=== PATIENT | female | born 1980 | race Caucasian/White ===

== ENCOUNTER → 2016-06-04 | Outpatient (CLI) | payer BC, OTHER ==
[~2016-06-04] MED LIST: CITA40TA12 PO; ESCI1TAB18 PO; VEDO1INJ
[2016-06-04 13:37] LABS: ALT/SGPT 35 U/L (12-78); BLOOD UREA NITROGEN 13 mg/dl (7-18); BUN/CREATININE RATIO 13.7 (10-20); CALCIUM 8.9 mg/dl (8.5-10.1); CARBON DIOXIDE 22 mmol/L (21-32); CHLORIDE 108 mmol/L (98-107); CHOLESTEROL 232 mg/dl (0-200); CREATININE 0.97 mg/dl (0.60-1.20); GLUCOSE 90 mg/dl (70-99); POTASSIUM 3.8 mmol/L (3.5-5.1); SODIUM 141 mmol/L (136-145); TRIGLYCERIDES 152 mg/dl (0-150); VERY LOW DENSITY LIPOPROT CALC 30 mg/dl
[2016-06-04 13:40] LABS: ALB/GLOB RATIO 0.9 (0.9-2); ALKALINE PHOSPHATASE 64 U/L (45-117); AST/SGOT 19 U/L (15-37); CHOLESTEROL/HDL RATIO 5.5; HDL CHOLESTEROL 42 mg/dl; LDL CHOLESTEROL CALCULATED 160 mg/dl
== END | disposition home or self-care (01) ==
LOC: C.LABMFLN 06-04 07:43
PROVIDERS: ATTEND Family Medicine
DX: Z00.00 Encounter for general adult medical examination without abnormal findings (principal); K50.00 Crohn's disease of small intestine without complications; Z13.220 Encounter for screening for lipoid disorders; Z13.1 Encounter for screening for diabetes mellitus; T45.1X5A Adverse effect of antineoplastic and immunosuppressive drugs, initial encounter

== ENCOUNTER → 2016-12-20 | Outpatient (CLI) | payer BC ==
[2016-12-20 18:06] LABS: BASO % 0.5 %; BASO ABS # 0.04 K/uL (0-0.2); COMPLETE YES; EOS % 1.8 %; HEMATOCRIT 40.5 % (37-47); IG% 0.5 %; LYMPH % 39.4 %; LYMPH ABS # 3.03 K/uL (1.2-3.4); MEAN CELL VOLUME 83.3 fL (80-100); MEAN CORPUSCULAR HEMOGLOBIN 28.8 pg (25-34); MEAN CORPUSCULAR HGB CONC 34.6 g/dl (32-36); MEAN PLATELET VOLUME 9.9 fL (7.4-10.4); MONO % 6.8 %; PLATELET COUNT 236 K/uL (130-400); RED BLOOD COUNT 4.86 M/uL (4.2-5.4)
[2016-12-20 18:07] LABS: ALT/SGPT 34 U/L (12-78); BLOOD UREA NITROGEN 7 mg/dl (7-18); C-REACTIVE PROTEIN 0.72 mg/dl (0-0.29); CARBON DIOXIDE 31 mmol/L (21-32); CHLORIDE 103 mmol/L (98-107); CREATININE 0.88 mg/dl (0.60-1.20); GLUCOSE 106 mg/dl (70-99); POTASSIUM 3.8 mmol/L (3.5-5.1); SODIUM 138 mmol/L (136-145)
[2016-12-20 18:09] LABS: ALB/GLOB RATIO 0.9 (0.9-2); ALKALINE PHOSPHATASE 86 U/L (45-117); AST/SGOT 20 U/L (15-37)
== END | disposition home or self-care (01) ==
LOC: C.LABMFLN 15:05
PROVIDERS: ATTEND Physician Assistant
DX: R19.7 Diarrhea, unspecified (principal)

== ENCOUNTER → 2016-12-29 | Day surgery (SDC) | payer BC ==
[2016-12-24 15:34] VITALS: BMI 32.0
[~2016-12-29] VITALS: Ht 154.9 cm; Wt 77.3 kg
[~2016-12-29] MED LIST changes: -CITA40TA12 PO; +LIDOCAINE HCL 2% 2 ML VIAL (20MG/ML) ONE; +MIDAZOLAM HCL 1 MG/ML 2ML VIAL ONE; +PROPOFOL IV EMULSION 10 MG/ML 20 ML VIAL IV ONE; +SODIUM CHLORIDE 0.9% 500ML 500 ML IV ONE
[2016-12-29 09:44] VITALS: Ht 154.9 cm; Wt 77.3 kg
[2016-12-29 09:49] VITALS: TEMP 37.2
--- NOTE | 2016-12-29 09:59 | Endo History and Physical ---
History & Physical Date of Service: Dec 29, 2016. Chief Complaint: HX CROHNS Referring Physician: DR. KING History of Present Illness 36 yo CF who presents for colonoscopy secondary to Crohn's Disease. Past Medical History Gastrointestinal Disorder, Anxiety, Depression Past Surgical History Hx Cardiac Surgery: No Hx Internal Defibrillator: No Hx Pacemaker: No Hx Abdominal Surgery: Yes (TUBAL LIGATION, ) Hx of Implantable Prosthesis: No Hx Post-Op Nausea and Vomiting: No Hx Cancer Surgery: No Hx Thoracic Surgery: No Hx Orthopedic: No Hx Urinary Tract Surgery: No Family History Colon CA Social History Smoking Status: Never Smoker Hx Substance Use: No Hx Alcohol Use: No Allergies Coded Allergies: Amoxicillin (Verified Allergy, Severe, TONGUE SWELLS, 12/29/16) Penicillins (Verified Allergy, Severe, TONGUE SWELLS, 12/29/16) Sulfamethoxazole w/Trimethoprim (Verified Allergy, Severe, TONGUE SWELLS, 12/29/16) Cefdinir (Verified Allergy, Unknown, TONGUE SWELLS AND HIVES, 12/29/16) Mercaptopurine (Unverified Allergy, Unknown, TONGUE SWELLS, 12/29/16) Sodium Benzoate (Verified Allergy, Unknown, TONGUE SWELLS AND HIVES, ) Current Medications Reported Home Medications Medications Dose Route/Sig Max Daily Dose Days Date Category Lexapro (Escitalopram Oxalate) 20 Mg Tab 2 Tabs PO QPM 12/24/16 Reported Entyvio (Vedolizumab) 300 Mg Inj Q8WK 09/19/15 Reported Vital Signs Weight (Kilograms): 77.27 Height (Feet): 5 Height (Inches): 1 Date Time Temp Pulse Resp B/P (MAP) Pulse Ox O2 Delivery O2 Flow Rate FiO2 12/29/16 09:49 37.2 77 16 125/72 (89) 99 Room Air Physical Exam General Appearance: WD/WN, no apparent distress Respiratory/Chest: Auscultation: breath sounds normal Cardiovascular: Heart Auscultation: RRR Abdomen: Bowel Sounds: normal Inspection & Palpation: soft, non-distended, no tenderness, guarding & rebound Assessment and Plan Assessment: 36 yo CF who presents for colonoscopy secondary to Crohn's Disease. Plan: Proceed with colonoscopy.
--- NOTE | 2016-12-29 10:25 | Discharge Instructions ---
Endoscopy Patient Instructions Date / Procedure(s) Performed Dec 29, 2016. Colonoscopy Allergy Information Coded Allergies: Amoxicillin (Verified Allergy, Severe, TONGUE SWELLS, 12/29/16) Penicillins (Verified Allergy, Severe, TONGUE SWELLS, 12/29/16) Sulfamethoxazole w/Trimethoprim (Verified Allergy, Severe, TONGUE SWELLS, 12/29/16) Cefdinir (Verified Allergy, Unknown, TONGUE SWELLS AND HIVES, 12/29/16) Mercaptopurine (Unverified Allergy, Unknown, TONGUE SWELLS, 12/29/16) Sodium Benzoate (Verified Allergy, Unknown, TONGUE SWELLS AND HIVES, ) Discharge Date / Findings Dec 29, 2016. Random colon biopsies Medication Instructions OK to resume all medications today as prescribed Reported Home Medications Medications Dose Route/Sig Max Daily Dose Days Date Category Lexapro (Escitalopram Oxalate) 20 Mg Tab 2 Tabs PO QPM 12/24/16 Reported Entyvio (Vedolizumab) 300 Mg Inj Q8WK 09/19/15 Reported Provider Instructions Activity Restrictions - No exercising or heavy lifting for 24 hours. - Do not drink alcohol the day of the procedure. - Do not drive a car or operate machinery until the day after the procedure. - Do not make any important decisions or sign important papers in 24 hours after the procedure. Following Day: - Return to full activity which may include returning to work/school. Diet Start your diet with liquids and light foods (jello, soup, juice, toast). Then eat your usual diet if not nauseated. Treatment For Common After Affects For mild abdominal pain, bloating, or excessive gas: - Rest - Eat lightly - Lie on right side Follow-Up Information Follow-up with DR. KING as scheduled Anesthesia Information What You Should Know You have had a procedure that required some medicine to reduce anxiety and discomfort. This treatment is called moderate sedation. After receiving the treatment, you may be sleepy, but you will be able to breathe on your own. The effects of the treatment may last for several hours. Follow these instructions along with Activity/Diet recommendations noted above: * Do NOT do anything where dizziness or clumsiness would be dangerous. * Rest quietly at home today, then you can be up and about tomorrow. * Have a responsible person stay with you the rest of today. * You may have had an I.V. today. If so, you may take the dressing off later today. Recommendations Call your doctor if: * Trouble breathing * Continuous vomiting for more than 24 hours * Temperature above 101 degrees * Severe abdominal pain or bloating * Pain not relieved by pain medicine ordered * There is increased drainage or redness from any incision * A large amount of rectal bleeding greater than 2-3 tablespoons. (If you had a polyp/s removed or have hemorrhoids, a small amount of blood - from the rectum is to be expected.) * You have any unanswered questions or concerns. IN THE EVENT OF A SERIOUS EMERGENCY, GO TO THE NEAREST EMERGENCY ROOM Your discharge instructions were prepared by provider Baljit Gonzalez. Patient Instructions Signature Page Leonora Isbell Patient (or Guardian) Signature/Date: I have read and understand the instructions given to me by my caregivers. Caregiver/RN/Doctor Signature/Date: The above-named patient and/or guardian has received patient instructions on this date. + Original Patient Signature Page (only) stays with chart. Please make copy for patient.
--- NOTE | 2016-12-29 10:46 | Anesthesiology Progress Note ---
Anesthesia Post Op Note Date & Time Dec 29, 2016 at 10:45 Vital Signs Pain Intensity: 0 Vital Signs Past 12 Hours Date Time Temp Pulse Resp B/P (MAP) Pulse Ox O2 Delivery O2 Flow Rate FiO2 12/29/16 10:38 78 18 115/78 (90) 98 Room Air 12/29/16 10:23 95 18 110/71 (84) 94 Room Air 12/29/16 09:49 37.2 77 16 125/72 (89) 99 Room Air Notes Mental Status: alert / awake / arousable, participated in evaluation Pt Amnestic to Procedure: Yes Nausea / Vomiting: adequately controlled Pain: adequately controlled Airway Patency, RR, SpO2: stable & adequate BP & HR: stable & adequate Hydration State: stable & adequate Anesthetic Complications: no major complications apparent
[2016-12-29 10:53] VITALS: BP 121/77; PULSE 77; O2SAT 98
--- NOTE | 2016-12-29 11:00 | GI REPORT ---
Procedure Date: 12/29/2016 10:04 AM Procedure: Colonoscopy Indications: Follow-up of Crohn's disease Medicines: Monitored Anesthesia Care Complications: No immediate complications. Estimated Blood Loss: Estimated blood loss: none. Procedure: Pre-Anesthesia Assessment: - Prior to the procedure, a History and Physical was performed, and patient medications and allergies were reviewed. The patient's tolerance of previous anesthesia was also reviewed. The risks and benefits of the procedure and the sedation options and risks were discussed with the patient. All questions were answered, and informed consent was obtained. Prior Anticoagulants: The patient has taken no previous anticoagulant or antiplatelet agents. ASA Grade Assessment: II - A patient with mild systemic disease. After reviewing the risks and benefits, the patient was deemed in satisfactory condition to undergo the procedure. After I obtained informed consent, the scope was passed under direct vision. Throughout the procedure, the patient's blood pressure, pulse, and oxygen saturations were monitored continuously. The scope was introduced through the anus and advanced to the terminal ileum. The colonoscopy was performed without difficulty. The patient tolerated the procedure well. The quality of the bowel preparation was good. The terminal ileum, ileocecal valve, appendiceal orifice, and rectum were photographed. Findings: The colon (entire examined portion) appeared normal. Several random biopsies were obtained with cold forceps for histology in the entire colon. Impression: - The entire examined colon is normal. - Several random biopsies were obtained in the entire colon. Recommendation: - Resume previous diet. - Continue present medications. - Repeat colonoscopy for surveillance based on pathology results. - Return to primary care physician as previously scheduled. Baljit Gonzalez, DO 12/29/2016 10:59:43 AM This report has been signed electronically. Note Initiated On: 12/29/2016 10:04 AM I attest to the content of the Intraoperative Record and orders documented therein, exceptions below
== END | disposition home or self-care (01) ==
LOC: C.GI 09:25
PROVIDERS: ATTEND Internal Medicine
DX: K50.90 Crohn's disease, unspecified, without complications (principal); Z80.0 Family history of malignant neoplasm of digestive organs; F41.9 Anxiety disorder, unspecified; F32.9 Major depressive disorder, single episode, unspecified; Z79.899 Other long term (current) drug therapy

== ENCOUNTER → 2017-02-01 | Outpatient (CLI) | payer BC ==
[~2017-02-01] MED LIST changes: -LIDOCAINE HCL 2% 2 ML VIAL (20MG/ML) ONE; -MIDAZOLAM HCL 1 MG/ML 2ML VIAL ONE; -PROPOFOL IV EMULSION 10 MG/ML 20 ML VIAL IV ONE; -SODIUM CHLORIDE 0.9% 500ML 500 ML IV ONE
--- NOTE | 2017-02-01 15:29 | MAMMOGRAPHY REPORT ---
UNILATERAL LEFT DIGITAL DIAGNOSTIC MAMMOGRAM TOMOSYNTHESIS WITH CAD AND TARGETED LEFT ULTRASOUND: 02/01/2017 CLINICAL HISTORY: 36-year-old woman with a lump in the left breast for approximately one week, with s oreness deep to the area of lump. No skin erythema or thickening. No nipple discharge. Family hist ory of breast cancer = aunt and grandmother. TECHNIQUE: Left breast tomosynthesis in addition to standard 2D mammography was performed. Current st udy was also evaluated with a Computer Aided Detection (CAD) system. COMPARISON: No prior exams were available for comparison. BREAST COMPOSITION: The tissue of the left breast is heterogeneously dense, which may obscure small masses. FINDINGS: A triangle skin palpable marker was placed on the lower inner quadrant of the left breast, in the area of lump and soreness pointed out by the patient. No suspicious mass, architectural disto rtion or cluster of microcalcifications is seen throughout the left breast. Targeted ultrasound was performed in the area of palpable lump pointed out by the patient, within the 7:00 left breast, 3 cm from the nipple. On palpation, there is slightly heterogeneous texture godwin l tissue. On ultrasound, there is sonographically normal tissue without evidence of a discrete solid or cystic mass. IMPRESSION: ACR BI-RADS CATEGORY 2: BENIGN, TARGETED ULTRASOUND ACR BI-RADS CATEGORY 2: BENIGN There is no suspicious mammographic or targeted sonographic abnormality in the 7:00 left breast in th e area of lump and soreness pointed out by the patient. Overall, no mammographic evidence of maligna ncy in the left breast. Clinical follow-up is recommended, as biopsy of a clinically suspicious mass should not be precluded by negative imaging. These results and recommendations were discussed with the patient at the time of the exam. Approximately 10% of breast cancers are not detected with mammography. A negative mammographic report should not delay biopsy if a clinically suggestive mass is present. Aviva Ellison M.D. ay/:02/01/2017 13:05:08 Marketing Content Manager: Amirah BRADEN)(Angelina), [facility] letter sent: Normal 1/2 BI-RADS Code: ACR BI-RADS Category 2: Benign Ultrasound BI-RADS: ACR BI-RADS Category 2: Benign
== END | disposition home or self-care (01) ==
LOC: C.MAMM 12:30
PROVIDERS: ATTEND Physician Assistant
DX: N63.20 Unspecified lump in the left breast, unspecified quadrant (principal)

== ENCOUNTER → 2017-05-26 | Outpatient (CLI) | payer BC ==
[2017-05-26 18:06] LABS: BASO % 0.1 %; BASO ABS # 0.01 K/uL (0-0.2); HEMATOCRIT 41.9 % (37-47); HEMOGLOBIN 14.6 g/dL (12.0-16.0); IG# 0.03 K/uL (0.00-0.02); LYMPH % 12.8 %; LYMPH ABS # 1.16 K/uL (1.2-3.4); MEAN CELL VOLUME 85.2 fL (80-100); MEAN CORPUSCULAR HEMOGLOBIN 29.7 pg (25-34); MEAN CORPUSCULAR HGB CONC 34.8 g/dl (32-36); MEAN PLATELET VOLUME 10.3 fL (7.4-10.4); MONO % 1.9 %; MONO ABS # 0.17 K/uL (0.11-0.59); NEUT % 84.9 %; PLATELET COUNT 269 K/uL (130-400); RED CELL DISTRIBUTION WIDTH CV 13.6 % (11.5-14.5); RED CELL DISTRIBUTION WIDTH SD 41.6 fL (36.4-46.3); WHITE BLOOD COUNT 9.07 K/uL (4.8-10.8)
[2017-05-26 18:25] LABS: ALBUMIN 3.8 gm/dl (3.4-5.0); ALT/SGPT 43 U/L (12-78); AST/SGOT 16 U/L (15-37); BLOOD UREA NITROGEN 7 mg/dl (7-18); CALCIUM 9.5 mg/dl (8.5-10.1); CARBON DIOXIDE 25 mmol/L (21-32); CREATININE 1.01 mg/dl (0.60-1.20); GLUCOSE 189 mg/dl (70-99); SODIUM 135 mmol/L (136-145)
[2017-05-26 18:27] LABS: ALKALINE PHOSPHATASE 94 U/L (45-117); TOTAL PROTEIN 8.2 gm/dl (6.4-8.2)
[2017-05-30 14:40] LABS: QUANTIF MITOGEN-NIL 7.05 IU/ML; QUANTIFERON NEGATIVE (NEGATIVE); QUANTIFERON NIL 0.02 IU/ML
== END | disposition home or self-care (01) ==
LOC: C.LABMFLN 10:03
PROVIDERS: ATTEND Physician Assistant
DX: R19.7 Diarrhea, unspecified (principal); K50.00 Crohn's disease of small intestine without complications